=== PATIENT | female | born 1950 | race Two or more races ===

== ENCOUNTER 2018-08-15 15:33 | Outpatient (CLI) | payer OTHER | END 2018-08-15 18:00 | disposition home or self-care (01) | LOC: LAB 15:33 | DX: N20.0 Calculus of kidney (principal) ==

== ENCOUNTER → 2018-08-23 11:23 | Outpatient (CLI) | payer OTHER | END | disposition home or self-care (01) | LOC: RAD 11:23 | DX: N20.0 Calculus of kidney (principal) ==

== ENCOUNTER → 2018-08-23 12:17 | Outpatient (CLI) | payer OTHER | END | disposition home or self-care (01) | LOC: NUCLEAR 08:00 | DX: I87.2 Venous insufficiency (chronic) (peripheral) (principal); I80.8 Phlebitis and thrombophlebitis of other sites ==